=== PATIENT | male | born 1955 | race Caucasian/White ===

== ENCOUNTER 2016-06-30 05:16 | Emergency (ER) | payer BC ==
[2016-06-30 05:43] VITALS: TEMP 98; BMI 38.9
--- NOTE | 2016-06-30 05:49 | PDOC ---
[id number] 97 06/30/16 05:35 06/30/16 05:35 06/30/16 05:35 06/30/16 05:35 06/30/16 05:35 Medical Decision Making - Medical Decision Making 06/30/16 05:49 agree with care from OCCASIONAL CAREGIVER Ryan *DC/Admit/Observation/Transfer Diagnosis at time of Disposition: Upper respiratory infection, viral, Bronchitis - Discharge Dispostion Disposition: HOME Condition at time of disposition: Stable - Prescriptions Prescriptions: Prednisone [Deltasone -] 40 mg PO DAILY #8 tablet Albuterol Sulfate Inhaler - [Ventolin Hfa Inhaler -] 1 - 2 inh PO Q4H PRN #1 inhaler PRN Reason: trouble breathing, wheezing Azithromycin [Zithromax -] 250 mg PO DAILY #4 tab - Referrals Referrals: Kady North MD [Primary Care Provider] - - Patient Instructions Printed Discharge Instructions: DI for Viral Upper Respiratory Infection -- Adult Additional Instructions: FOLLOW UP WITH DR. NORTH NEEDED. TAKE MEDICATIONS PRESCRIBED. RETURN IF ANY WORSENING OF SYMPTOMS OR ANY OTHER CONCERNS FOR FURTHER EVALUATION. Print Language: GERMAN
[2016-06-30] MEDS ORDERED: predniSONE 20 MG TABLET (UD) PO ONE (05:53)
[2016-06-30] MEDS ORDERED: AZITHROMYCIN 250 MG TABLET (FP) PO ONE (05:53)
--- NOTE | 2016-06-30 05:59 | PDOC ---
History of Present Illness - General Chief Complaint: Cold Symptoms Stated Complaint: COUGHING Time Seen by Provider: 06/30/16 05:41 History Source: Patient Exam Limitations: No Limitations - History of Present Illness Initial Comments: 06/30/16 05:54 61yo Male patient presents to ED c/o cough and nasal congestion that began this past Tuesday. Patient states his was recently seen by her PCP and given Zithromax for upper respiratory infection and he may have gotten what she had. Denies fever, CP, Abd pain, n/v/d, rash, diff breathing or any other complaints at this time. + Smoker. Timing/Duration: reports: week Severity: reports: mild Possible Cause: Yes: illness exposure Modifying Factors: worse with: activity, albuterol inhaler, albuterol nebulizer , antibiotics, coughing, lying down, oxygen, rest, other Associated Symptoms: reports: cough, nasal congestion. denies: denies symptoms , chest pain/soreness, dizziness, earache, facial pain, fever/chills, headache, lightheadedness, muscle aches, nasal drainage, shortness of breath, sinus infection, sore throat, wheezing, other Past History - Travel Traveled outside of the country in the last 30 days: No Close contact w/someone who was outside of country & ill: No - Past Medical History Allergies/Adverse Reactions: Allergies Allergy/AdvReac Type Severity Reaction Status Date / Time Penicillins Allergy Mild Verified 06/30/16 05:35 Home Medications: Ambulatory Orders Losartan Potassium 0 mg PO DAILY 12/27/15 Omeprazole Magnesium [Prilosec] 20 mg PO DAILY 12/27/15 Ranitidine HCl [Zantac] 150 mg PO DAILY #30 tablet 12/27/15 Albuterol Sulfate Inhaler - [Ventolin Hfa Inhaler -] 1 - 2 inh PO Q4H PRN #1 inhaler 06/30/16 Azithromycin [Zithromax -] 250 mg PO DAILY #4 tab 06/30/16 Prednisone [Deltasone -] 40 mg PO DAILY #8 tablet 06/30/16 Cardiac Disorders: Yes (CAD) GI Disorders: Yes (acid reflux) HTN: Yes - Surgical History Abdominal Surgery: (hernia) Cardiac Surgery: Yes (STENT) - Psycho/Social/Smoking Cessation Hx Anxiety: No Suicidal Ideation: No Smoking Status: Yes Smoking History: Current every day smoker Have you smoked in the past 12 months: Yes Number of Cigarettes Smoked Daily: 10 Information on smoking cessation initiated: No 'Breaking Loose' booklet given: 12/27/12 Hx Alcohol Use: No Drug/Substance Use Hx: No Substance Use Type: Alcohol Hx Substance Use Treatment: No Respiratory Specific PMHX - Complaint Specific PMHX Angina: No Bronchitis: No Pneumonia: No Pulmonary Embolus: No TB (Tuberculosis): No Review of Systems - Review of Systems Able to Perform ROS?: Yes Is the patient limited Ukrainian proficient: No Constitutional: No: Chills, Fever, Malaise HEENTM: Yes: Nose Congestion. No: Throat Pain Respiratory: Yes: Cough. No: Shortness of Breath, SOB at Rest, Stridor, Wheezing, Productive cough Cardiac (ROS): No: Chest Pain, Palpitations, Syncope, Chest Tightness ABD/GI: No: Diarrhea, Nausea, Vomiting : No: Dysuria Musculoskeletal: No: Back Pain, Joint Pain Integumentary: No: Rash Neurological: No: Headache, Seizure, Weakness, Dizziness All Other Systems: Reviewed and Negative *Physical Exam - Vital Signs Last Vital Signs Temp Pulse Resp BP Pulse Ox 98.0 F 96 H 20 147/103 97 06/30/16 05:35 06/30/16 05:35 06/30/16 05:35 06/30/16 05:35 06/30/16 05:35 - Physical Exam General Appearance: Yes: Nourished, Appropriately Dressed. No: Apparent Distress, Mild Distress, Moderate Distress, Severe Distress HEENT: positive: EOMI, ROBERTO, Normal ENT Inspection, Normal Voice, Symmetrical, TMs Normal, Pharyngeal Erythema, Nasal Congestion. negative: Tonsillar Exudate , Tonsillar Erythema, Rhinorrhea, TM Bulging, TM Dull, TM Erythema Neck: positive: Trachea midline, Supple. negative: Lymphadenopathy (R), Lymphadenopathy (L), Rigidity Respiratory/Chest: positive: Wheezing (Mild). negative: Respiratory Distress, Accessory Muscle Use, Labored Respiration, Rapid RR Cardiovascular: positive: Regular Rhythm, Regular Rate Gastrointestinal/Abdominal: positive: Normal Bowel Sounds, Soft, Distended. negative: Guarding, Rebound, Tenderness Musculoskeletal: positive: Normal Inspection. negative: CVA Tenderness Extremity: positive: Normal Capillary Refill, Normal Inspection, Normal Range of Motion Integumentary: positive: Normal Color, Dry, Warm Neurologic: positive: international trade manager II-XII NML intact, Fully Oriented, Alert, Normal Mood/ Affect, Normal Response, Motor Strength 5/5 *DC/Admit/Observation/Transfer Diagnosis at time of Disposition: Viral upper respiratory tract infection, Bronchitis - Discharge Dispostion Disposition: HOME Condition at time of disposition: Stable Admit: No - Prescriptions Prescriptions: Prednisone [Deltasone -] 40 mg PO DAILY #8 tablet Albuterol Sulfate Inhaler - [Ventolin Hfa Inhaler -] 1 - 2 inh PO Q4H PRN #1 inhaler PRN Reason: trouble breathing, wheezing Azithromycin [Zithromax -] 250 mg PO DAILY #4 tab - Patient Instructions Printed Discharge Instructions: DI for Viral Upper Respiratory Infection -- Adult Additional Instructions: FOLLOW UP WITH DR. NORTH NEEDED. TAKE MEDICATIONS PRESCRIBED. RETURN IF ANY WORSENING OF SYMPTOMS OR ANY OTHER CONCERNS FOR FURTHER EVALUATION. Print Language: PANAMANIAN
[2016-06-30] MEDS ORDERED: AZITHROMYCIN 250 MG TABLET (FP) ONE (06:09)
[2016-06-30] MEDS ORDERED: predniSONE 20 MG TABLET (UD) ONE (06:09)
[2016-06-30 06:13] VITALS: BP 148/87; PULSE 91
== END 2016-06-30 06:13 | disposition home or self-care (01) ==
LOC: JER 05:16
DX: J40 Bronchitis, not specified as acute or chronic (principal); J06.9 Acute upper respiratory infection, unspecified; B97.89 Other viral agents as the cause of diseases classified elsewhere; F17.210 Nicotine dependence, cigarettes, uncomplicated; K21.9 Gastro-esophageal reflux disease without esophagitis; I10 Essential (primary) hypertension; Z95.5 Presence of coronary angioplasty implant and graft; I25.10 Atherosclerotic heart disease of native coronary artery without angina pectoris
CPT/HCPCS: 99281-25

== ENCOUNTER 2017-03-12 07:03 | Inpatient (IN) | payer BC ==
[2017-03-12 07:11] VITALS: BMI 36.9
--- NOTE | 2017-03-12 07:14 | PDOC ---
History of Present Illness - General Chief Complaint: Chest Pain Stated Complaint: CHEST PAIN Time Seen by Provider: 03/12/17 07:14 Past History - Past Medical History Allergies/Adverse Reactions: Allergies Allergy/AdvReac Type Severity Reaction Status Date / Time Penicillins Allergy Mild Verified 03/12/17 07:10 Home Medications: Ambulatory Orders Omeprazole Magnesium [Prilosec] 20 mg PO DAILY 12/27/15 Ranitidine HCl [Zantac] 150 mg PO DAILY #30 tablet 12/27/15 Albuterol Sulfate Inhaler - [Ventolin Hfa Inhaler -] 1 - 2 inh PO Q4H PRN #1 inhaler 06/30/16 Azithromycin [Zithromax -] 250 mg PO DAILY #4 tab 06/30/16 Prednisone [Deltasone -] 40 mg PO DAILY #8 tablet 06/30/16 Cardiac Disorders: Yes (CAD) COPD: No GI Disorders: Yes (acid reflux) HTN: Yes - Surgical History Abdominal Surgery: Yes (hernia) Cardiac Surgery: Yes (STENT) - Suicide/Smoking/Psychosocial Hx Smoking Status: Yes Smoking History: Current every day smoker Have you smoked in the past 12 months: Yes Number of Cigarettes Smoked Daily: 20 Information on smoking cessation initiated: No 'Breaking Loose' booklet given: 12/27/12 Hx Alcohol Use: No Drug/Substance Use Hx: No Substance Use Type: None Hx Substance Use Treatment: No *Physical Exam - Vital Signs Last Vital Signs Temp Pulse Resp BP Pulse Ox 98.1 F 83 20 153/105 100 03/12/17 07:08 03/12/17 07:08 03/12/17 07:08 03/12/17 07:08 03/12/17 07:08
--- NOTE | 2017-03-12 07:32 | PDOC ---
History of Present Illness - General Chief Complaint: Chest Pain Stated Complaint: CHEST PAIN Time Seen by Provider: 03/12/17 07:14 - History of Present Illness Initial Comments: 03/12/17 07:32 61 yo M with h/o poorly controlled HTN, CAD ( s/p stent placement x 2 10 years ago), and GERD who presents with chest pain. Intermittent bilateral chest pain, with radiation between shoulder blades beginning 3 PM yesterday intermittent and resolves after minutes and recurs spontaneously. No identifiable triggers. Pain occurs at rest and while shoveling snow this morning. States that pain is different than reflux pain that has occurred in the past. Denies N/V, fevers/ chills, cough, pleuritic chest pain, SOB, vision change, lightheadedness, weakness, vertigo. Denies ASA use. Patient partially compliant with antihypertensives. Tobacco/smokes 2 PPD for the past 20 years. Social alcohol use. Denies h/o MN/CABG No chiropractic neurologist. PCP Dr. Kady Morales. Past History - Past Medical History Allergies/Adverse Reactions: Allergies Allergy/AdvReac Type Severity Reaction Status Date / Time Penicillins Allergy Mild Verified 03/12/17 07:10 Home Medications: Ambulatory Orders Omeprazole Magnesium [Prilosec] 40 mg PO DAILY 12/27/15 Benazepril/Hydrochlorothiazide [Lotensin Hct 10-12.5 mg Tablet] 1 each PO DAILY 03/12/17 Cardiac Disorders: Yes (CAD) COPD: No GI Disorders: Yes (acid reflux) HTN: Yes - Surgical History Abdominal Surgery: Yes (hernia) Cardiac Surgery: Yes (STENT) - Suicide/Smoking/Psychosocial Hx Smoking Status: Yes Smoking History: Current every day smoker Have you smoked in the past 12 months: Yes Number of Cigarettes Smoked Daily: 20 Information on smoking cessation initiated: No 'Breaking Loose' booklet given: 12/27/12 Hx Alcohol Use: No Drug/Substance Use Hx: No Substance Use Type: None Hx Substance Use Treatment: No Review of Systems - Review of Systems Comments:: 03/12/17 07:59 GENERAL/CONSTITUTIONAL: No fever or chills. No weakness. HEAD, EYES, EARS, NOSE AND THROAT: No change in vision. No ear pain or discharge. No sore throat.- CARDIOVASCULAR: + chest pain. No shortness of breath RESPIRATORY: No cough, wheezing, or hemoptysis. GASTROINTESTINAL: No nausea, vomiting, diarrhea or constipation. GENITOURINARY: No dysuria, frequency, or change in urination. MUSCULOSKELETAL: + Back pain. No joint or muscle swelling or pain. No neck. SKIN: No rash NEUROLOGIC: No headache, vertigo, loss of consciousness, or change in strength/ sensation. ENDOCRINE: No increased thirst. No abnormal weight change HEMATOLOGIC/LYMPHATIC: No anemia, easy bleeding, or history of blood clots. ALLERGIC/IMMUNOLOGIC: No hives or skin allergy. *Physical Exam - Vital Signs Last Vital Signs Temp Pulse Resp BP Pulse Ox 98.1 F 83 20 153/105 100 03/12/17 07:08 03/12/17 07:08 03/12/17 07:08 03/12/17 07:08 03/12/17 07:08 - Physical Exam Comments: 03/12/17 08:01 GENERAL: Awake, alert, and fully oriented, in no acute distress HEAD: No signs of trauma, normocephalic, atraumatic EYES: PERRLA, EOMI, sclera anicteric, conjunctiva clear ENT: Hearing grossly normal, nares patent, oropharynx clear without exudates. Moist mucosa NECK: Normal ROM, supple, no lymphadenopathy, JVD, or masses LUNGS: No distress, speaks full sentences, clear to auscultation bilaterally HEART: Regular rate and rhythm, normal S1 and S2, no murmurs, rubs or gallops, peripheral pulses normal and equal bilaterally. ABDOMEN: Soft, nontender, normoactive bowel sounds. No guarding, no rebound. No masses EXTREMITIES : Normal inspection, Normal range of motion, no edema. No clubbing or cyanosis. NEUROLOGICAL: Cranial nerves II through XII grossly intact. Normal speech, normal gait, no focal sensorimotor deficits SKIN: Warm, Dry, normal turgor, no rashes or lesions noted. Heart Score/ECG Review - History History: Slightly suspicious - Electrocardiogram EKG: Normal - Age Age: >/= 65 - Risk Factors Risk Factors Heart Score: Yes Hx Hypercholesterolemia, Yes Hx Hypertension, Yes Smoking History, Yes Positive family hx of cardiac disease, Yes Hx Obesity Based on the list above the patient has:: >/=3 risk factors or Hx atherosclerotic disease - ECG Intrepretation Rhythm: Regular Rhythm - [place]: Normal ED Treatment Course - LABORATORY CBC & Chemistry Diagram: 03/12/17 07:45 03/12/17 07:45 Medical Decision Making - Medical Decision Making 03/12/17 08:13 61 yo M with h/o poorly controlled HTN, CAD ( s/p stent placement x 2 10 years ago), and GERD who presents with intermittent bilateral chest pain, with radiation between shoulder blades beginning 3 PM yesterday intermittent resolving spontaneously after minutes. No identifiable triggers. Denies N/V, fevers/chills, cough, pleuritic chest pain, SOB, vision change, lightheadedness , weakness, vertigo. Physical exam non reproducible chest pain and slightly hypertensive 153/105. We will evaluate this patient for ACS/MN given history and risk factors. It is also reasonable to consider aortic dissection in this patient who presents with sharp tearing chest pain radiating to back, h/o HTN, and tobacco use. ED Course: CBC, CMP, Trop, BNP, Cardiac profile UA, EKG, CXR 03/12/17 08:18 EKG: NSR with absent MAGGIE, STD, or TWI 03/12/17 09:19 CBC: Unremarkable Trop ( 0.07) UA: Neg nitirite, 1+ Blood CTA CHEST CTA ABDOMEN 03/12/17 09:20 CXR: Slight increase in lung markings 03/12/17 09:[address] Dominique Knowles. 03/12/17 10:07 03/12/17 11:16 Cardiology consulted per answering service. 03/12/17 11:18 CTA CHEST: Normal caliber aorta with no evidence of acute intramural hematoma, dissection or penetrating ulcer. Very short segment focal dissection in the left common femoral artery with no hemodynamically significant stenosis. Emphysematous changes with new 4 mm left lower lobe pulmonary nodule. If patient is high risk, consider follow-up chest CT in 12 months. Hepatic steatosis and hepatomegaly. Enlarged prostate gland indenting the base the urinary bladder. Please correlate with PSA and physical exam. Patient to get cardiac catherization per chiropractic neurologist Dr. Myles. Heparin protocol infusion, Lipitor 81 mg. *DC/Admit/Observation/Transfer Diagnosis at time of Disposition: Chest pain at rest - Discharge Dispostion Admit: Yes - Referrals - Patient Instructions - Post Discharge Activity
[2017-03-12] MEDS ORDERED: ASPIRIN 81 MG CHEWABLE TABLETS PO ONE (07:34)
[2017-03-12] MEDS ORDERED: ASPIRIN 81 MG CHEWABLE TABLETS ONE (07:37)
--- NOTE | 2017-03-12 08:00 | PDOC ---
Attending Attestation - Resident Resident Name: Jeff Caba - ED Attending Attestation I have performed the following: I have examined & evaluated the patient, The case was reviewed & discussed with the resident, I agree w/resident's findings & plan, Exceptions are as noted - HPI HPI: 03/12/17 07:37 61yo M hx HTN (non compliant with meds), CAD s/p stents (last one 10yrs ago on diagnostic cath at [facility]) p/w b/l CP radiating to the shoulder blades. Started at 3pm yesterday, lasts minutes and self resolves. No associated symptoms. The patient reports that the pain began at rest however became worse when he tried to shovel the snow off his daughter's car this morning. Reports he has frequent discomfort due to gastroesophageal reflux however this feels different. He has not tried any treatments. He has not seen a aircraft refueller in 10 years. He states he does not take any medications because he doesn't like taking meds every day. Smokes 2 packs per day. Denies fevers, chills, coughing, SOB, headache, focal weakness or numbness, lower extremity edema. Denies recent travel or immobility. - Physicial Exam PE: 03/12/17 08:01 GENERAL: Awake, alert, and fully oriented, in no acute distress HEAD: No signs of trauma EYES: PERRLA, EOMI, sclera anicteric, conjunctiva clear ENT: Auricles normal inspection, hearing grossly normal, nares patent, oropharynx clear without exudates. Moist mucosa NECK: Normal ROM, supple, no lymphadenopathy, JVD, or masses LUNGS: Breath sounds equal, clear to auscultation bilaterally. No wheezes, and no crackles HEART: Regular rate and rhythm, normal S1 and S2, no murmurs, rubs or gallops ABDOMEN: Soft, nontender, normoactive bowel sounds. No guarding, no rebound. No masses EXTREMITIES: Normal range of motion, no edema. No clubbing or cyanosis. No cords, erythema, or tenderness NEUROLOGICAL: Normal speech, cranial nerves intact, negative pronator drift, 5/ 5 strength in all 4 extremities, normal sensation to light touch in all 4 extremities, normal cerebellar exam, normal gait, normal reflexes and tone SKIN: Warm, Dry, normal turgor, no rashes or lesions noted. - Medical Decision Making 03/12/17 08:02 61-year-old male with a history of CAD status post stents and hypertension presents with chest pain radiating to the back. Vitals remarkable for hypertension with BP 159/100, the patient took his home dose of blood pressure medication prior to arrival to the emergency department. Differential includes aortic dissection versus unstable angina versus ACS. We'll obtain CTA, cardiac enzymes, chest x-ray. If CTA is negative will complete the dose of aspirin. Will admit for cardiac workup. Heart Score/ECG Review - History History: Highly suspicious - Electrocardiogram EKG: Non specific repolarization disturbance - Age Age: 45-65 - Risk Factors Based on the list above the patient has:: >/=3 risk factors or Hx atherosclerotic disease - Troponin Troponin: </= normal limit - Score Heart Score - Total: 6 #1 03/12/17 08:07 Twelve-lead EKG was performed and reviewed by me. Normal sinus rhythm, rate 92. Normal axis. No ST elevations or T-wave inversions.
[2017-03-12 08:11] LABS: BASO % 0.9 % (0-2.0); EOS % 1.3 % (0-4.5); MCH 30.3 pg (25.7-33.7); MCHC 34.8 g/dl (32.0-35.9); MEAN CELL VOLUME 87.1 fl (80-96); MEAN PLT VOLUME 7.9 fl (7.5-11.1); NEUT % 64.6 % (42.8-82.8); PLATELET COUNT 176 K/MM3 (134-434); RDW 13.1 % (11.9-15.9); WHITE BLOOD COUNT 8.2 K/mm3 (4.0-10.0)
[2017-03-12 08:35] LABS: URINE APPEARANCE CLEAR; URINE BILIRUBIN NEGATIVE (NEGATIVE); URINE BLOOD 1+ (NEGATIVE); URINE COLOR LTYELLOW; URINE GLUCOSE (UA) NEGATIVE (NEGATIVE); URINE KETONE NEGATIVE (NEGATIVE); URINE LEUK ESTERASE NEGATIVE (NEGATIVE); URINE NITRITE NEGATIVE (NEGATIVE); URINE PROTEIN NEGATIVE (NEGATIVE); URINE UROBILINOGEN NEGATIVE mg/dL (0.2-1.0)
[2017-03-12 08:43] LABS: ALBUMIN 3.9 g/dl (3.4-5.0); ANION GAP 7 (8-16); BILIRUBIN,TOTAL 0.4 mg/dL (0.2-1.0); CALCIUM 8.8 mg/dL (8.5-10.1); CO2 27 mmol/L (21-32); GLUCOSE,RANDOM 116 mg/dL (74-106); SGOT/AST 25 U/L (15-37); SGPT/ALT 34 U/L (12-78); TOT PROT 7.6 g/dl (6.4-8.2)
[2017-03-12 08:46] LABS: ALK PHOS 73 U/L (45-117); TROPONIN I 0.07 ng/ml (0.00-0.05)
[2017-03-12 08:48] LABS: URINE RBC <1 /hpf (0-3); URINE WBC <1 /hpf (3-5)
[2017-03-12 08:49] LABS: INR 1.04 (0.82-1.09); PROTHROMBIN TIME (PATIENT) 11.7 SEC (9.98-11.88)
[2017-03-12] MEDS ORDERED: ATORVASTATIN CA 80 MG TABLET (FP) PO ONE ×2 (10:14→12:06)
[2017-03-12] MEDS ORDERED: PANTOPRAZOLE 40 MG TABLET (FP) PO SCH (10:30)
[2017-03-12] MEDS ORDERED: PANTOPRAZOLE 40 MG TABLET (FP) ONE (10:36)
[2017-03-12] MEDS ORDERED: ATORVASTATIN CA 80 MG TABLET (FP) ONE (10:36)
[2017-03-12] MEDS ORDERED: METOPROLOL TARTRATE 25 MG TABLET (FP) PO SCH (11:15)
[2017-03-12] MEDS ORDERED: METOPROLOL TARTRATE 25 MG TABLET (FP) ONE (11:35)
[2017-03-12] MEDS ORDERED: ASPIRIN 325 MG ENTERIC COATED TABLET (FP) PO ONE (11:39)
[2017-03-12] MEDS ORDERED: HEPARIN NA (PORCINE) 5,000 UNITS/ML 1ML VIAL IVPUSH PRN ×2 (12:06)
[2017-03-12] MEDS ORDERED: HEPARIN SOD,PORK IN 0.45% NACL 25,000 UNITS/500 ML INFUS.BAG IVPB SCH (12:15)
--- NOTE | 2017-03-12 12:22 | CONSULT ---
Consult Consult Specialty:: Cardiology Referred by:: Dr. Caba Reason for Consultation:: Chest pain (+) troponin - History of Present Illness Chief Complaint: Chest pain History of Present Illness: 61 yo male History of hypertension for >10 years Known ASCVD with prior PCI x 2 10 years ago at [facility] (Details not available) Chronic smoker Does not follow regularly with rn charge Now presents with intermittent chest pain Shoveled snow yesterday and this 3AM developed moderate bilateral chest pain that lasted for 5 mins then resolved. Took a shower and had recurrence of chest pain Pain radiated to upper back/scapulae and right underarm Pain has been intermittent since then but currently chest pain free No associated dyspnea, nausea or diaphoresis. 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 Home Medications - Allergies Allergies/Adverse Reactions: Allergies Allergy/AdvReac Type Severity Reaction Status Date / Time Penicillins Allergy Mild Verified 03/12/17 07:10 - Home Medications Home Medications: Ambulatory Orders Omeprazole Magnesium [Prilosec] 40 mg PO DAILY 12/27/15 Benazepril/Hydrochlorothiazide [Lotensin Hct 10-12.5 mg Tablet] 1 each PO DAILY 03/12/17 Family Disease History - Family Disease History Family History: Unremarkable (No familty h/o CAD/[place]) Review of Systems - Review of Systems Constitutional: reports: No Symptoms Eyes: reports: No Symptoms HENT: reports: No Symptoms Neck: reports: No Symptoms Cardiovascular: reports: Chest Pain Respiratory: reports: No Symptoms Gastrointestinal: reports: No Symptoms Genitourinary: reports: No Symptoms Musculoskeletal: reports: No Symptoms Integumentary: reports: No Symptoms Neurological: reports: No Symptoms Hematology/Lymphatic: reports: No Symptoms Physical Exam Vital Signs: Vital Signs Temperature 98.1 F 03/12/17 08:09 Pulse Rate 81 03/12/17 08:51 Respiratory Rate 16 03/12/17 08:51 Blood Pressure 137/90 03/12/17 08:51 O2 Sat by Pulse Oximetry (%) 98 03/12/17 08:51 Constitutional: Yes: Well Nourished, No Distress Eyes: Yes: WNL HENT: Yes: WNL Neck: Yes: WNL Cardiovascular: Yes: Regular Rate and Rhythm Respiratory: Yes: WNL, CTA Bilaterally Gastrointestinal: Yes: WNL Extremities: Yes: WNL Edema: No Peripheral Pulses WNL: Yes Integumentary: Yes: WNL Labs: CBC, BMP 03/12/17 07:45 03/12/17 07:45 Imaging - Results Cat Scan: Report Reviewed (No aortic dissection) EKG: Image Reviewed (ECG at 07:09 NSR at 92/min with iRBBB) Assessment/Plan 61 yo male HTN and known ASCVD with prior PCI Now chest pain syndrome and (+) troponin Currently chest pain free Symptoms concerning for ACS given his CAD history and (+) initial trop Will start IV UFH (Dissection has been ruled out) Asa 325mg PO now and Atorva 80mg PO Would proceed with cardiac cath given above I discussed this with the patient and his daughter and they wish to have it done at [place] I have called and spoke with Dr. Diaz at [facility] who has accepted the patient.
[2017-03-12 12:34] LABS: TROPONIN I 0.94 ng/ml (0.00-0.05)
[2017-03-12] MEDS ORDERED: HEPARIN NA (PORCINE) 5,000 UNITS/ML 1ML VIAL ONE (12:35)
[2017-03-12] MEDS ORDERED: HEPARIN INFUSION - 25,000 UNITS/500 ML INFUS.BAG IVPB ONE (12:36)
[2017-03-12 12:47] VITALS: BP 135/92; PULSE 80; TEMP 98.6
--- NOTE | 2017-03-12 13:11 | HP ---
Admitting History and Physical - Primary Care Physician PCP: - Admission Chief Complaint: Chest Pain History of Present Illness: 61 yrs man H/O HTN, CAD s/p Stent 10 yrs ago active smoker not on statin or B Blockers, obesity, present with chest pain that started in am with exertion after removing snow off her car, describes B/L shoulder pain 01/04, lasted > 1 Hr , radiate to back associated with perspiration, pain improved by the time he reached ED, no c/o [place], PND or orthopneanea, no recent change in ET, in the Ed 92 NSR, mild elevation of troponin I, evaluated by cardiolohgy consult recommonded cardiac cath, patient will go to [facility] for Cardiac acth at the time of examination, chest pain free. 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 denies: Chills, Diaphoresis, Fever HENT: denies: Difficult Swallowing, Epistaxis Neck: denies: Decreased ROM, Lumps Cardiovascular: reports: Chest Pain. denies: Edema, Palpitations, Shortness of Breath Respiratory: denies: Cough, Exercise Intolerance, Hemoptysis, Orthopnea Gastrointestinal: reports: Indigestion. denies: Melena, Rectal Bleeding Musculoskeletal: reports: Back Pain Endocrine: denies: Excessive Sweating, Increased Hunger Hematology/Lymphatic: denies: Easily Bruised, Excessive Bleeding Psychiatric: denies: Altered Sleep Pattern, Anxiety Physical Examination Vital Signs: Vital Signs Temperature 98.6 F 03/12/17 12:46 Pulse Rate 80 03/12/17 12:46 Respiratory Rate 18 03/12/17 12:46 Blood Pressure 135/92 03/12/17 12:46 O2 Sat by Pulse Oximetry (%) 98 03/12/17 12:46 Middle aged man comfortable not in distress HEENT: Mm moist, no anemia, PERRLA EOMI NECK: No JVD No Bruit CHEST: Non tender, CTA B/L CVS: S1S2 r no m/g/r ABD: No distention, non tender Bs + EXT: No edema feet, no calf tenderness, Pulses + PRODUCTION SHIFT SUPERVISOR: [id number] focal Labs: CBC, BMP 03/12/17 07:45 03/12/17 07:45 Laboratory Results - last 24 hr 03/12/17 03/12/17 03/12/17 07:35 07:45 07:45 WBC 8.2 RBC 5.68 H Hgb 17.2 H Hct 49.5 H MCV 87.1 MCH 30.3 MCHC 34.8 RDW 13.1 Plt Count 176 MPV 7.9 Neutrophils % 64.6 Lymphocytes % 26.7 Monocytes % 6.5 Eosinophils % 1.3 Basophils % 0.9 PT with INR 11.70 INR 1.04 Sodium Potassium Chloride Carbon Dioxide Anion Gap BUN Creatinine Creat Clearance w eGFR Random Glucose Hemoglobin A1c % Calcium Total Bilirubin AST ALT Alkaline Phosphatase Creatine Kinase Creatine Kinase Index CK-MB (CK-2) Troponin I B-Natriuretic Peptide Total Protein Albumin Triglycerides Cholesterol Total LDL Cholesterol HDL Cholesterol TSH Urine Color Ltyellow Urine Appearance Clear Urine pH 6.0 Ur Specific [place] 1.012 Urine Protein Negative Urine Glucose (UA) Negative Urine Ketones Negative Urine Blood 1+ H Urine Nitrite Negative Urine Bilirubin Negative Urine Urobilinogen Negative Urine WBC (Auto) <1 Urine RBC (Auto) <1 Ur Epithelial Cells Rare 03/12/17 03/12/17 03/12/17 07:45 07:45 10:24 WBC RBC Hgb Hct MCV MCH MCHC RDW Plt Count MPV Neutrophils % Lymphocytes % Monocytes % Eosinophils % Basophils % PT with INR INR Sodium 137 Potassium 4.1 Chloride 103 Carbon Dioxide 27 Anion Gap 7 L BUN 15 Creatinine 1.0 Creat Clearance w eGFR > 60 Random Glucose 116 H Hemoglobin A1c % Calcium 8.8 Total Bilirubin 0.4 AST 25 D ALT 34 D Alkaline Phosphatase 73 Creatine Kinase 259 Creatine Kinase Index 3.8 CK-MB (CK-2) 9.842 H Troponin I 0.07 H D Cancelled 0.94 H* D B-Natriuretic Peptide 38.45 Cancelled Total Protein 7.6 Albumin 3.9 Triglycerides 135 Cholesterol 155 Total LDL Cholesterol 105 H HDL Cholesterol 31 L TSH 1.67 Urine Color Urine Appearance Urine pH Ur Specific [place] Urine Protein Urine Glucose (UA) Urine Ketones Urine Blood Urine Nitrite Urine Bilirubin Urine Urobilinogen Urine WBC (Auto) Urine RBC (Auto) Ur Epithelial Cells 03/12/17 03/12/17 10:24 10:45 WBC RBC Hgb Hct MCV MCH MCHC RDW Plt Count MPV Neutrophils % Lymphocytes % Monocytes % Eosinophils % Basophils % PT with INR INR Sodium Potassium Chloride Carbon Dioxide Anion Gap BUN Creatinine Creat Clearance w eGFR Random Glucose Hemoglobin A1c % 6.2 H Calcium Total Bilirubin AST ALT Alkaline Phosphatase Creatine Kinase Creatine Kinase Index CK-MB (CK-2) Troponin I 0.92 H* B-Natriuretic Peptide Total Protein Albumin Triglycerides Cholesterol Total LDL Cholesterol HDL Cholesterol TSH Urine Color Urine Appearance Urine pH Ur Specific [place] Urine Protein Urine Glucose (UA) Urine Ketones Urine Blood Urine Nitrite Urine Bilirubin Urine Urobilinogen Urine WBC (Auto) Urine RBC (Auto) Ur Epithelial Cells Imaging - Results Chest X-ray: Report Reviewed (Normal) Cat Scan: Report Reviewed (CTA Thoracic and abd Aorta: Samall segment dissection Left) Problem List - Problems (1) ACS (acute coronary syndrome) Assessment/Plan: Known case of CAd s/p stent , typical pain, normal EKG but rising troponin I evaluated by Cardiology consult ASA, Lipitor 80 mg stat, Heparin infusion, B Blockers S/L NTG PRN will be transferred to to [facility] for intervention. Code(s): I24.9 - ACUTE ISCHEMIC HEART DISEASE, UNSPECIFIED (2) HTN (hypertension) Code(s): I10 - ESSENTIAL (PRIMARY) HYPERTENSION (3) CAD (coronary artery disease) Assessment/Plan: S/P stent present with chest pain cont treatment for ACS NSTEMI needs Cardiac cath. Code(s): I25.10 - ATHSCL HEART DISEASE OF [place] CORONARY ARTERY W/O ANG PCTRS (4) Emphysema lung Assessment/Plan: CT shows emphysem ano whweezing or symptoms active smoker. Code(s): J43.9 - EMPHYSEMA, UNSPECIFIED (5) GERD (gastroesophageal reflux disease) Assessment/Plan: ON PPI Code(s): K21.9 - GASTRO-ESOPHAGEAL REFLUX DISEASE WITHOUT ESOPHAGITIS (6) Obesity (BMI 30-39.9) Assessment/Plan: Obesity needs evaluation for SASHA , nutritional consult Code(s): E66.9 - OBESITY, UNSPECIFIED (7) Needs smoking cessation education Assessment/Plan: Counselled for smoking cessation, nicotine patch offered Code(s): F17.200 - NICOTINE DEPENDENCE, UNSPECIFIED, UNCOMPLICATED (8) Dissecting femoral aneurysm Assessment/Plan: Non Hemodynamically significant localized dissecting aneurysm of Left FA cont statin , B Blockers, Vascular surgery consult. Code(s): I77.77 - DISSECTION OF ARTERY OF LOWER EXTREMITY (9) Elevated hemoglobin Assessment/Plan: Due to smoking Adv, smoking cessation Code(s): D58.2 - OTHER HEMOGLOBINOPATHIES
[2017-03-12 13:32] LABS: CHOLESTEROL 155 mg/dL (50-200)
[2017-03-12 13:39] LABS: THYROID STIMULATING HORMONE 1.67 uIU/ml (0.358-3.74)
--- NOTE | 2017-03-12 18:06 | DS ---
Physical Examination Vital Signs: 11 yrs man H/O HTN, CAD s/p Stent 10 yrs ago active smoker not on statin or B Blockers, obesity, present with chest pain that started in am with exertion after removing snow off her car, describes B/L shoulder pain 01/04, lasted > 1 Hr , radiate to back associated with perspiration, pain improved by the time he reached ED, no c/o [place], PND or orthopnea , no recent change in ET, in the Ed 92 NSR, mild elevation of troponin I, evaluated by cardiolohgy consult recommended cardiac cath, patient will go to [facility] for Cardiac Cath at the time of examination, chest pain free. Temperature 98.6 F 03/12/17 12:46 Pulse Rate 80 03/12/17 12:46 Respiratory Rate 18 03/12/17 12:46 Blood Pressure 135/92 03/12/17 12:46 O2 Sat by Pulse Oximetry (%) 98 03/12/17 12:46 Middle aged man comfortable not in distress HEENT: Mm moist, no anemia, PERRLA EOMI NECK: No JVD No Bruit CHEST: Non tender, CTA B/L CVS: S1S2 r no m/g/r ABD: No distention, non tender Bs + EXT: No edema feet, no calf tenderness, Pulses + COMMISSION SPECIALIST: [id number] focal Labs: CBC, BMP 03/12/17 07:45 03/12/17 07:45 Discharge Summary Reason For Visit: ELEVATED TROPONIN I LEVEL, CHEST PAIN AT REST Current Active Problems ACS (acute coronary syndrome) (Acute) CAD (coronary artery disease) (Acute) Chest pain at rest (Acute) Emphysema lung (Acute) GERD (gastroesophageal reflux disease) (Acute) HTN (hypertension) (Acute) Needs smoking cessation education (Acute) Obesity (BMI 30-39.9) (Acute) - Instructions Diet, Activity, Other Instructions: Cardiac Referrals: Kady Morales MD [Primary Care Provider] - Disposition: TRANSFER ACUTE CARE/OTHER HOSP - Home Medications Comprehensive Discharge Medication List: Ambulatory Orders Omeprazole Magnesium [Prilosec] 40 mg PO DAILY 12/27/15 Benazepril/Hydrochlorothiazide [Lotensin Hct 10-12.5 mg Tablet] 1 each PO DAILY 03/12/17
[2017-03-12 18:24] LABS: URINE LEUK ESTERASE Negative (NEGATIVE)
[2017-03-13] MEDS ORDERED: HYDROCHLOROTHIAZIDE 12.5 MG CAPSULE (FP) PO SCH (10:00)
[2017-03-13] MEDS ORDERED: LISINOPRIL 10 MG TABLET (FP) PO SCH (10:00)
--- NOTE | 2017-03-15 01:42 | EKG ---
Test Reason : Blood Pressure : / mmHG Vent. Rate : 059 BPM Atrial Rate : 059 BPM P-R Int : 154 ms QRS Dur : 114 ms QT Int : 448 ms P-R-T Axes : 002 007 028 degrees QTc Int : 443 ms SINUS BRADYCARDIA INCOMPLETE RIGHT BUNDLE BRANCH BLOCK BORDERLINE ECG WHEN COMPARED WITH ECG OF 12-MAR-2017 07:09, VENT. RATE HAS DECREASED BY 33 BPM Confirmed by NY GOLDSMITH MD ([id number]) on 03/15/2017 1:41:36 AM Referred By: Confirmed By:NY GOLDSMITH MD
--- NOTE | 2017-03-15 01:45 | EKG ---
Test Reason : Blood Pressure : / mmHG Vent. Rate : 092 BPM Atrial Rate : 092 BPM P-R Int : 150 ms QRS Dur : 116 ms QT Int : 392 ms P-R-T Axes : 050 -02 037 degrees QTc Int : 484 ms NORMAL SINUS RHYTHM INCOMPLETE RIGHT BUNDLE BRANCH BLOCK PROLONGED QT ABNORMAL ECG WHEN COMPARED WITH ECG OF 27-DEC-2015 17:19, T WAVE VARIATION Confirmed by NY GOLDSMITH MD ([id number]) on 03/15/2017 1:45:03 AM Referred By: Confirmed By:NY GOLDSMITH MD
== END 2017-03-12 13:37 | disposition short-term general hospital (02) | DRG 303 ==
LOC: JER 07:03 → JERBED 09:44
PROVIDERS: ADMIT Internal Medicine; ATTEND Internal Medicine
DX: I25.110 Atherosclerotic heart disease of native coronary artery with unstable angina pectoris (principal); I10 Essential (primary) hypertension; K21.9 Gastro-esophageal reflux disease without esophagitis; Z88.0 Allergy status to penicillin; Z91.14 Patient's other noncompliance with medication regimen; Z98.61 Coronary angioplasty status; E66.9 Obesity, unspecified; F17.210 Nicotine dependence, cigarettes, uncomplicated; J43.9 Emphysema, unspecified; Z68.36 Body mass index [BMI] 36.0-36.9, adult
CPT/HCPCS: 36415; 71010-TC; 71275-TC; 74174-TC; 80053; 80061; 81003; 81015; 82550; 82553; 83036; 83721; 83880; 84443; 84484; 85025; 85610; 93005; 93010; 99285-25; J1644

== ENCOUNTER 2018-06-09 08:06 | Emergency (ER) | payer BC ==
[2018-06-09 08:25] VITALS: TEMP 98.6; BMI 41.3
[2018-06-09] MEDS ORDERED: METOCLOPRAMIDE HCL INJECTION 10 MG/2 ML VIAL IVPB ONE (08:26)
[2018-06-09] MEDS ORDERED: ACETAMINOPHEN 1000 MG/100 ML VIAL (NON FORMULARY) IVPB ONE (08:26)
[2018-06-09] MEDS ORDERED: ACETAMINOPHEN INJECTION 100 ML IVPB ONE (08:41)
[2018-06-09] MEDS ORDERED: METOCLOPRAMIDE HCL INJECTION 10 MG/2 ML VIAL ONE (08:41)
--- NOTE | 2018-06-09 08:48 | PDOC ---
History of Present Illness - General Chief Complaint: Chest Pain Stated Complaint: CHEST PAIN Time Seen by Provider: 06/09/18 08:16 - History of Present Illness Initial Comments: 06/09/18 08:43 63 M with h/o HTN, GERD, CAD/stents, presenting to ED with nausea and headache. Pt states that he woke up this morning with a "funny" feeling in his head. He endorses mild global headache associated with nausea. He initially thought his symptoms were 2/2 his GERD, so he went about his day. At work, his coworker told him he looked "flushed", prompting pt to come to ED. Pt denies ever having any chest pain. Denies SOB. Denies abdominal pain. Denies vomiting/diarrhea. States that these symptoms are not similar to the symptoms he had with his last TN. Pt denies any thunderclap. Denies worst headache of life. Denies neck stiffness. No F/C. Past History - Past Medical History Allergies/Adverse Reactions: Allergies Allergy/AdvReac Type Severity Reaction Status Date / Time Penicillins Allergy Mild Verified 03/12/17 07:10 Home Medications: Ambulatory Orders Omeprazole Magnesium [Prilosec] 40 mg PO DAILY 12/27/15 Amlodipine Besylate [Norvasc -] 5 mg PO DAILY 06/09/18 Metoprolol Succinate [Toprol Xl -] 50 mg PO BID 06/09/18 Rosuvastatin [Crestor -] mg PO DAILY 06/09/18 Ticagrelor [Brilinta] 60 mg PO ASDIR 06/09/18 Cardiac Disorders: Yes (CAD) COPD: No GI Disorders: Yes (acid reflux) HTN: Yes Hypercholesterolemia: Yes - Surgical History Abdominal Surgery: Yes (hernia) Cardiac Surgery: Yes (STENT) - Suicide/Smoking/Psychosocial Hx Smoking Status: Yes Smoking History: Former smoker Have you smoked in the past 12 months: No Number of Cigarettes Smoked Daily: 20 Information on smoking cessation initiated: No 'Breaking Loose' booklet given: 12/27/12 Hx Alcohol Use: No Drug/Substance Use Hx: No Substance Use Type: None Hx Substance Use Treatment: No Review of Systems - Review of Systems Comments:: 06/09/18 08:46 "GENERAL/CONSTITUTIONAL: No fever or chills. No weakness. HEAD, EYES, EARS, NOSE AND THROAT: No change in vision. No ear pain or discharge. No sore throat. CARDIOVASCULAR: No chest pain, no shortness of breath, no loss of consciousness RESPIRATORY: No cough, wheezing, or hemoptysis. GASTROINTESTINAL:+ nausea, no vomiting, diarrhea or constipation. GENITOURINARY: No dysuria, frequency, or change in urination. MUSCULOSKELETAL: No joint or muscle swelling or pain. No neck or back pain. SKIN: No rash NEUROLOGIC: +headache, No vertigo, no change in strength/sensation. ENDOCRINE: No increased thirst. No abnormal weight change. HEMATOLOGIC/LYMPHATIC: No anemia, easy bleeding, or history of blood clots. ALLERGIC/IMMUNOLOGIC: No hives or skin allergy. *Physical Exam - Vital Signs Last Vital Signs Temp Pulse Resp BP Pulse Ox 98.6 F 79 20 159/89 99 06/09/18 08:15 06/09/18 08:15 06/09/18 08:15 06/09/18 08:15 06/09/18 08:15 - Physical Exam Comments: 06/09/18 08:47 "GENERAL: Awake, alert, and fully oriented, in no acute distress. HEAD: No signs of trauma EYES: PERRLA, EOMI, sclera anicteric, conjunctiva clear ENT: Auricles normal inspection, hearing grossly normal, nares patent, oropharynx clear without exudates. Moist mucosa NECK: Nontender, no stepoffs, Normal ROM, supple, no lymphadenopathy, JVD, or masses LUNGS: Breath sounds equal, clear to auscultation bilaterally. No wheezes, and no crackles HEART: Regular rate and rhythm, normal S1 and S2, no murmurs, rubs or gallops ABDOMEN: Soft, nontender, normoactive bowel sounds. No guarding, no rebound. No masses EXTREMITIES: Normal range of motion, no edema. No clubbing or cyanosis. No cords, erythema, or tenderness NEUROLOGICAL: Cranial nerves II through XII intact. 5/5 strength and sensation in all extremities, Normal speech, normal gait, normal cerebellar function SKIN: Warm, Dry, normal turgor, no rashes or lesions noted. Moderate Sedation - Procedure Monitoring Vital Signs: Procedure Monitoring Vital Signs Temperature 98.6 F 06/09/18 08:15 Pulse Rate 79 06/09/18 08:15 Respiratory Rate 20 06/09/18 08:15 Blood Pressure 159/89 03/15/19 08:15 O2 Sat by Pulse Oximetry (%) 99 06/09/18 08:15 Heart Score/ECG Review - History History: Slightly suspicious - Electrocardiogram EKG: Normal - Age Age: 45-65 - Risk Factors Risk Factors Heart Score: Yes Hx Hypercholesterolemia, Yes Hx Hypertension, Yes Smoking History, Yes Hx Obesity Based on the list above the patient has:: >/=3 risk factors or Hx atherosclerotic disease - Troponin Troponin: </= normal limit - Score Heart Score - Total: 3 - ECG Impressions Comment:: 06/09/18 08:47 NSR, no MAGGIE/STDs, no TWIs, axis wnl, intervals wnl, incomplete RBBB, no changes since prior EKG ED Treatment Course - LABORATORY CBC & Chemistry Diagram: 06/09/18 08:45 06/09/18 08:45 - RADIOLOGY Radiology Studies Ordered: Category Date Time Status HEAD CT WITHOUT CONTRAST [CT] Stat CT Scan 06/09/18 08:25 Ordered Medical Decision Making - Medical Decision Making 06/09/18 08:48 63 M with headache and nausea. Pt with no CP/SOB to suggest ACS but given h/o CAD will r/o TN with serial trops. Pt with no neuro deficits but is on AC and given SWANSON with nausea, will obtain head CT to r/o ICH. - Labs, trop - CT head - Tylenol, reglan 06/09/18 11:12 Labs notable for glucose 300, otherwise unremarkable CT head negative Pt counseled on f/u with PMD for diabetes work up. Will send 2nd troponin now. Pt states he has to go to work and does not want to wait for result. States he is now asymptomatic. Pt is well appearing, with normal vitals. Clinically stable for DC at this time. I discussed the physical exam findings, ancillary test results and final diagnoses with the patient. I answered all of the patient's questions. The patient was satisfied with the care received and felt comfortable with the discharge plan and treatment plan. The patient agrees to follow up with the primary care physician within 24-72 hours. *DC/Admit/Observation/Transfer Diagnosis at time of Disposition: Headache, Hyperglycemia - Discharge Dispostion Disposition: HOME - Referrals Referrals: Kady Morales MD [Primary Care Provider] - - Patient Instructions Printed Discharge Instructions: DI for Hyperglycemia -- Adult Additional Instructions: Your sugar was very high today, which can be a sign of diabetes. You must follow up with your primary doctor within 48 hours to have this further evaluated. Failure to treat diabetes can lead to several complications, including but not limited to kidney disease, heart disease, stroke, or even . If you experience any lightheadedness, nausea, chest pain, or any other concerning symptoms, return to the ER immediately. - Post Discharge Activity Forms/Work/School Notes: Back to Work - Attestations Physician Attestion: 06/09/18 11:16 I, Dr. Julio Dalton MD, attest that this document has been prepared under my direction and personally reviewed by me in its entirety. I further attest, that it accurately reflects all work, treatment, procedures and medical decision -making performed by me.
[2018-06-09 08:52] LABS: BASO % 0.9 % (0-2.0); EOS % 1.8 % (0-4.5); HEMATOCRIT 41.4 % (35.4-49); HEMOGLOBIN 14.7 GM/dL (11.7-16.9); LYMPH % 21.8 % (8-40); MCH 30.9 pg (25.7-33.7); MCHC 35.6 g/dl (32.0-35.9); MEAN CELL VOLUME 86.9 fl (80-96); MEAN PLT VOLUME 8.5 fl (7.5-11.1); NEUT % 67.5 % (42.8-82.8); PLATELET COUNT 166 K/MM3 (134-434); RBC 4.76 M/mm3 (4.00-5.60); RDW 13.2 % (11.9-15.9); WHITE BLOOD COUNT 6.6 K/mm3 (4.0-10.0)
[2018-06-09 09:18] VITALS: BP 129/82; PULSE 63
[2018-06-09 10:30] LABS: ALBUMIN 3.8 g/dl (3.4-5.0); ALK PHOS 80 U/L (45-117); ANION GAP 8 MMOL/L (8-16); BILIRUBIN,TOTAL 0.5 mg/dL (0.2-1); BLOOD UREA NITROGEN 17 mg/dL (7-18); CALCIUM 9.2 mg/dL (8.5-10.1); CHLORIDE 100 mmol/L (98-107); CO2 27 mmol/L (21-32); POTASSIUM 3.8 mmol/L (3.5-5.1); SGOT/AST 38 U/L (15-37); SGPT/ALT 45 U/L (13-61); SODIUM 135 mmol/L (136-145); TOT PROT 7.3 g/dl (6.4-8.2)
[2018-06-09 10:31] LABS: GLUCOSE,RANDOM 312 mg/dL (74-106)
--- NOTE | 2018-06-10 18:10 | EKG ---
Test Reason : Blood Pressure : / mmHG Vent. Rate : 077 BPM Atrial Rate : 077 BPM P-R Int : 160 ms QRS Dur : 116 ms QT Int : 420 ms P-R-T Axes : 044 008 043 degrees QTc Int : 475 ms NORMAL SINUS RHYTHM INCOMPLETE RIGHT BUNDLE BRANCH BLOCK BORDERLINE ECG WHEN COMPARED WITH ECG OF 12-MAR-2017 13:22, NO SIGNIFICANT CHANGE WAS FOUND Confirmed by MD CHHAYA, HILTON ([id number]) on 06/10/2018 6:09:48 PM Referred By: Confirmed By:HILTON SHAVER MD
== END 2018-06-09 11:32 | disposition home or self-care (01) ==
LOC: JER 08:06
PROC: 3E033NZ Introduction of Analgesics, Hypnotics, Sedatives into Peripheral Vein, Percutaneous Approach (ICD-10-PCS; principal; 2018-06-09)
PROC: 3E033GC Introduction of Other Therapeutic Substance into Peripheral Vein, Percutaneous Approach (ICD-10-PCS; 2018-06-09)
DX: R51 Headache (principal); R73.9 Hyperglycemia, unspecified; E78.00 Pure hypercholesterolemia, unspecified; I10 Essential (primary) hypertension; Z87.891 Personal history of nicotine dependence; E66.9 Obesity, unspecified; Z68.41 Body mass index [BMI] 40.0-44.9, adult
CPT/HCPCS: 36415; 70450-TC; 80053; 82550; 82553; 84484; 85025; 93005; 93010; 99283-25; J0131